=== PATIENT | female | born 1960 | race Caucasian/White ===

== ENCOUNTER 2021-04-09 01:36 | Outpatient (CLI) | payer MEDICAID, SELFPAY ==
--- NOTE | 2021-04-09 | DI.CTLCSR_ITS ---
Exam(s) CT CHEST LUNG CANCER SCREEN EXAM: CT CHEST LUNG CANCER SCREEN CLINICAL HISTORY: SCREENING FOR LUNG CA,CURRENT SMOKER, F17.210. TECHNIQUE: Imaging Protocol: Low Dose Technique CONTRAST MATERIAL: None COMPARISON: No exams were available for comparison FINDINGS: CHEST: LUNGS: Left lung: There is a 5 x 3 millimeter noncalcified nodule in the lateral aspect of the left upper lo be (series 2/image 37).. There is a 5 millimeter noncalcified nodule in the left lower lobe (series 2/image 81). There is a sub pleural 4 millimeter nodule in the lingular segment of the left lung (se jennifer 2/image 87). There is also a 3 millimeter nodule in the lateral basal segment of the left lower lobe (series 2/image 94). There is also a pleural base nodule in the inferior lingular segment of l eft lung measuring 6 x 5 millimeters (series 2/image 100). No pleural effusions. Right lung: There is a 5 x 4 millimeter nodule in the anterior segment of the right upper lobe (serie s 2/image 75). There is also at this same level a nodule measuring 5 x 4 millimeters seen in the rig ht lower lobe (series 2/image 75). Another 4 millimeter nodule is seen in the lateral basal segment of the right lower lobe (series 2/image 82). No other focal right lung findings and no pleural effus ion There are no significant focal findings in the trachea and mainstem bronchi. MEDIASTINUM: There is no obvious hilar nor mediastinal adenopathy. CARDIAC: Heart size is normal. There is no pericardial effusion.No coronary artery calcification brittany dent. Caliber of the thoracic aorta is within normal limits. OTHER: Lowermost images of this chest study reveal surgically absent gallbladder and large hypodensit y in the left hepatic lobe which is probably a cyst, this measuring 9 x 7 cm. A smaller probable cys t is seen in the medial aspect the right hepatic lobe measuring approximately 2.8 x 2.7 cm. The enti re liver is not included in the field of view. Spleen size appears normal. No adrenal masses. OSSEOUS: No significant osseous lesions.. IMPRESSION: 1. Multiple bilateral noncalcified pulmonary nodules, as described individually above, not associated with pleural effusions nor intrathoracic adenopathy. All nodules measure less than 1 cm. Compariso n a prior outside CT scans would be helpful, if they exist. If not, then recommend repeat CT scan in 3 months to ensure stability. 2. Large hepatic cysts incidentally noted. 3. Lung RADS Cat 4A - Suspicious: Findings for which additional diagnostic testing and/or tissue samp ling recommended Lung-RADS 1.0 CATEGORIES: Category 0 - Prior chest CT exam(s) being located for comparison. Category 1 - Annual screening in 12 months. No nodules or definitely benign nodules. Category 2 - Annual screening in 12 months. Benign appearance. Nodules with low likelihood of becomin g active cancer. Category 3 - 6-month follow-up. Probably benign. Short-term follow-up suggested. Nodules with low lik elihood of becoming active cancer. Category 4A - 3-month follow-up and CT/PET if >8 mm in size. Suspicious finding. Findings which requi re additional testing. Category 4B - Findings which require additional testing and tissue sampling. Modifier S- Potentially clinically significant findings (non lung cancer) RADIATION DOSE DELIVERED: 69.89mGy.cm Total DLP 1.84mGy CTDIvol DATA REPOSITORY: All CT scans at this facility are submitted to the National Radiology Data Registry (NRDR) Dose Index Registry (DIR) with the [employer] (A[employer]). RADIATION OPTIMIZATION: All CT scans at this facility use at least one of these dose optimization te chniques: automated exposure control; mA and/or kV adjustment per patient size (includes targeted exa ms where dose is matched to clinical indication); or iterative reconstruction.
== END 2021-04-09 01:56 ==
PROVIDERS: Visit Provider Nurse Practitioner
DX: Z12.2 Encounter for screening for malignant neoplasm of respiratory organs (principal); F17.210 Nicotine dependence, cigarettes, uncomplicated; R91.8 Other nonspecific abnormal finding of lung field; K76.89 Other specified diseases of liver
CPT/HCPCS: 71271

== ENCOUNTER 2021-06-27 01:50 | Outpatient (CLI) | payer MEDICAID, SELFPAY ==
--- NOTE | 2021-06-27 08:35 | DI.CT_ITS ---
Exam(s) CT CHEST WO EXAM: CT CHEST WO CLINICAL HISTORY: SUSPICIOUS NODES ON LOW-DOSE CHEST CT, 3-MO F/U TECHNIQUE: COMPARISON: CT CT CHEST LUNG CANCER SCREEN from 04/09/2021 FINDINGS: CT examination of chest was performed without contrast administration. This examination is obtained t o follow multiple noncalcified intrapulmonary nodules seen on prior examination of April 09, 2021. Nodules were noted to measure up to 6 millimeters in diameter on the prior scan. Pulmonary nodules are all again noted and appear unchanged, again measuring up to 6 millimeters mean diameter period couple of nodules are slightly more prominent but have increased less than 1 millimet er in diameter. No new [place] ule is identified. No pleural effusion seen. No mediastinal or hilar adenopathy. Tracheobronchial tree appears intact. Note is again made of presumed hepatic cysts and prior cholecystectomy. IMPRESSION: Probably stable multiple bilateral noncalcified intrapulmonary nodules on less than 3 month follow-up scan. Additional follow-up scan recommended in 6 months. RADIATION DOSE DELIVERED: 494.5mGy.cm Total DLP 14.58mGy CTDIvol RADIATION OPTIMIZATION: All CT scans at this facility use at least one of these dose optimization te chniques: automated exposure control; mA and/or kV adjustment per patient size (includes targeted exa ms where dose is matched to clinical indication); or iterative reconstruction.
== END 2021-06-27 02:10 ==
PROVIDERS: Visit Provider Nurse Practitioner
DX: R91.8 Other nonspecific abnormal finding of lung field (principal)
CPT/HCPCS: 71250

== ENCOUNTER → 2022-02-05 01:10 | Outpatient (CLI) | payer MEDICAID, SELFPAY ==
--- NOTE | 2022-02-05 | DI.CT_ITS ---
Exam(s) CT CHEST WO EXAM: CT CHEST WO CLINICAL HISTORY: 6 MO F/U LUNG NODULE, R91.1. TECHNIQUE: Multi planar reconstructions were performed. CONTRAST MATERIAL: None COMPARISON: CT CT CHEST LUNG CANCER SCREEN from 04/09/[address] CHEST WO from 06/27/2021 FINDINGS: CHEST: LUNGS: Again noted the previously described small nodules in the right lung. These remain stable in size and number without evidence of new right lung nodules. In the opposite-left lung there are 2 small 3 millimeter nodules in the lateral basal segment left lo wer lobe which are unchanged. No new left lung nodules. There are no infiltrates and there are no pleural effusions. There are no significant focal findings in the trachea and mainstem bronchi. MEDIASTINUM: There is no obvious hilar nor mediastinal adenopathy. Visualized thyroid unremarkable.No obvious axillary adenopathy CARDIAC: Heart size is normal. There is no pericardial effusion.Caliber of the thoracic aorta is wit hin normal limits. VISUALIZED UPPER ABDOMEN:No significant adrenal masses. Large cyst in the left hepatic lobe again no michael, measuring 9.7 by 7.6 by 6.3 cm craniocaudal. A smaller cyst in the medial aspect of the right h epatic lobe is also again noted unchanged. Small subcapsular hypodensity in the lateral aspect of th e right hepatic lobe is also unchanged in either cyst or hemangioma. OSSEOUS: No significant osseous lesions.. IMPRESSION: 1. Continued stable appearance of the previously described small bilateral pulmonary nodules. No new nodules, infiltrates, or pleural effusions and no new intrathoracic adenopathy. 2. Recommend follow-up CT scan in 1 year, earlier if clinically indicated. 3. Stable cysts in the liver measuring up to 9.7 cm again noted. RADIATION DOSE DELIVERED: 422.95mGy.cm Total DLP DATA REPOSITORY: All CT scans at this facility are submitted to the National Radiology Data Registry (NRDR) Dose Index Registry (DIR) with the [employer] ([employer]). RADIATION OPTIMIZATION: All CT scans at this facility use at least one of these dose optimization te chniques: automated exposure control; mA and/or kV adjustment per patient size (includes targeted exa ms where dose is matched to clinical indication); or iterative reconstruction.
== END ==
PROVIDERS: Visit Provider Nurse Practitioner
DX: R91.8 Other nonspecific abnormal finding of lung field (principal); N28.1 Cyst of kidney, acquired
CPT/HCPCS: 71250

== ENCOUNTER → 2023-04-28 00:18 | Outpatient (CLI) | payer MEDICAID, SELFPAY ==
--- NOTE | 2023-04-28 | DI.CTLCSR_ITS ---
Exam(s) CT CHEST LUNG CANCER SCREEN EXAM: CT CHEST LUNG CANCER SCREEN CLINICAL HISTORY: SMOKER, SCREENING FOR LUNG CANCER, F17.210 TECHNIQUE: Imaging Protocol: Axial computed tomography images with coronal and sagittal reformatted images were created and reviewed COMPARISON: CT CT CHEST WO from 02/05/2022 FINDINGS: Tracheobronchial tree: Patent where visualized. Pulmonary parenchyma: Mild centrilobular emphysematous changes are present in the lungs. No focal co nsolidating infiltrates are present. Mild scarring is seen in the left lingula. Lung Nodules: There are stable nodules in the lungs. The largest on the left is in the medial segmen t in the left lower lobe and measures 4 mm (series 3, image 340). No new left pulmonary nodules are present. There is a stable 6 mm nodule in the right middle lobe. There is a stable 4 mm nodule in t he right lower lobe. No new pulmonary nodules are seen on the right. Mediastinum and Alyssa: No dominant adenopathy or fluid collection. The esophagus is unremarkable. Thyroid gland: Unremarkable. Lymph nodes: Unremarkable. Pleura: No effusion or pneumothorax. Heart: The heart is not dilated. No coronary artery calcifications are seen. No pericardial effusion . Aorta: Thoracic aorta non-dilated. Upper abdomen: Stable hepatic cysts. Status post cholecystic Soft Tissues: Unremarkable. Bones: Within normal limits. IMPRESSION: Stable pulmonary nodules. Lung RADS Cat 2 - Benign Appearance / Behavior: Nodules with a very low likelihood of becoming a clin ically active cancer due to size or lack of growth Lung-RADS 1.0 CATEGORIES: Category 0 - Prior chest CT exam(s) being located for comparison. Category 1 - Annual screening in 12 months. No nodules or definitely benign nodules. Category 2 - Annual screening in 12 months. Benign appearance. Nodules with low likelihood of becomin g active cancer. Category 3 - 6-month follow-up. Probably benign. Short-term follow-up suggested. Nodules with low lik elihood of becoming active cancer. Category 4A - 3-month follow-up and CT/PET if >8 mm in size. Suspicious finding. Findings which requi re additional testing. Category 4B - Findings which require additional testing and tissue sampling. Suspicious finding. Category 4X - Category 3 or 4 nodules with additional features or imaging findings that increases the suspicion of malignancy. Modifier S- Potentially clinically significant finding. (Non lung cancer) RADIATION DOSE DELIVERED: Total DLP Total DLP DATA REPOSITORY: All CT scans at this facility are submitted to the National Radiology Data Registry (NRDR) Dose Index Registry (DIR) with the [employer] ([employer]). RADIATION OPTIMIZATION: All CT scans at this facility use at least one of these dose optimization te chniques: automated exposure control; mA and/or kV adjustment per patient size (includes targeted exa ms where dose is matched to clinical indication); or iterative reconstruction.
--- NOTE | 2023-04-28 | DI.MAMMO_ITS ---
Exam(s) MAMMO SCREENING EXAM: MAMMO SCREENING CLINICAL HISTORY: SCREENING BREAST CANCER Z12.31 TECHNIQUE: Bilateral full field digital CC and MLO mammographic images were obtained with 3D tomosyn thesis and utilizing computer aided detection (CAD). COMPARISON: Available for comparison. FINDINGS: Masses/Architectural Distortion: None seen. Microcalcifications: No suspicious pleomorphic-type are seen. Skin Thickening/Nipple Retraction: None. IMPRESSION: 1. No significant interval change with no specific features of malignancy noted. 2. Unless there is more urgent need, screening mammography is recommended, as per [employer] guidelines. BI-RADS Category 1 - Negative Breast Density - Category B - Scattered areas of fibroglandular density Breast density category C or D implies that the patient has dense breast tissue. Dense breast tissue is very common and is not abnormal but dense breast tissue can make it harder to find cancer on a ma mmogram. Also, dense breast tissue may increase their breast cancer risk. This information about the result of the mammogram report was provided to the patient to raise their awareness. Use this report when you speak with the patient about their risks for breast cancer, which includes their family hist ory. At that time, you may recommend for more screening tests (Ultrasound or MRI) as they might be us eful based on their risk. A negative radiographic report should not delay biopsy if a dominant or clinically suspicious mass is present. Up to ten percent of cancers are not identified on mammography. A negative report may reinforce clinical impression. Adenosis and dense breasts may obscure an underlying neoplasm. False positive reports average 6 to 10%. Patient will receive a letter notifying them of these results.
== END ==
PROVIDERS: Visit Provider Nurse Practitioner
DX: Z12.31 Encounter for screening mammogram for malignant neoplasm of breast (principal); R92.323 Mammographic fibroglandular density, bilateral breasts; Z12.2 Encounter for screening for malignant neoplasm of respiratory organs; F17.210 Nicotine dependence, cigarettes, uncomplicated; R91.8 Other nonspecific abnormal finding of lung field
CPT/HCPCS: 71271; 77063; 77067